=== PATIENT | male | born 1975 | race Caucasian/White ===

== ENCOUNTER 2019-04-26 09:00 | Outpatient (CLI) | payer OTHER ==
[~2019-04-26] VITALS: Ht 172.7 cm; Wt 92.1 kg
[~2019-04-26 09:00] MED LIST: ZOLP5TAB7 PO
== END 2019-04-26 09:12 | disposition home or self-care (01) ==
LOC: PREOP 09:00
PROVIDERS: ATTEND Surgery
DX: Z01.818 Encounter for other preprocedural examination (principal)

== ENCOUNTER 2019-05-02 07:29 | Day surgery (SDC) | payer OTHER ==
[~2019-05-02] VITALS: Ht 172.7 cm; Wt 91.9 kg
[2019-05-02] VITALS (7 sets, daily range): BP systolic 107–144; BP diastolic 73–95
[2019-05-02] MEDS ORDERED: ceFAZolin 2 GM/50 ML NS 50 ML IV ONE (07:45)
[2019-05-02] MEDS ORDERED: fentaNYL INJECTION 100 MCG/2 ML AMP ONE (07:59)
[2019-05-02] MEDS ORDERED: proPOfol 200 MG/20 ML (DIPRIVAN) VIAL IV ONE (07:59)
[2019-05-02] MEDS ORDERED: LIDOCAINE PF 2% 5 ML (XYLOCAINE) VIAL ONE (07:59)
[2019-05-02] MEDS ORDERED: MIDAZOLAM 2 MG/2 ML (VERSED) VIAL ONE ×2 (07:59→10:29)
[2019-05-02] MEDS ORDERED: SEVOFLURANE (ULTANE) 15 ML INHAL SOLN ONE ×2 (08:03→10:57)
[2019-05-02] MEDS: LACTATED RINGERS 1,000 ML IV PRN ×2 (08:10→11:27)
[2019-05-02] MEDS ORDERED: BUP/EPI 0.5% 1:200,000 (SENSORCAINE) 30 ML VIAL ONE (08:14)
--- NOTE | 2019-05-02 09:16 | Progress Note-Pre Operative ---
Pre-Operative Progress Note H&P Reviewed The H&P was reviewed, patient examined and no changes noted. Date Seen by Provider: May 02, 2019 Time Seen by Provider: 09:15 Date H&P Reviewed: May 02, 2019 Time H&P Reviewed: 09:10 Pre-Operative Diagnosis: Symptomatic lipomas of the right and left flank, mid- epigastric area ADITI SOLIS APRN May 02, 2019 09:16
[2019-05-02] MEDS ORDERED: HYDR-3812 PO (09:20)
--- NOTE | 2019-05-02 09:20 | Discharge Inst-Surgical ---
D/C Lap Instructions-KIDO New, Converted, or Re-Newed RX: RX on Chart Follow Up Appt in 2 weeks Activity as tolerated No driving for 24 hours No driving while on pain medications Incentive Spirometry use every 2 hours while awake Regular Diet Symptoms to Report: Fever over 101 degree F, Nausea/Vomiting Infection Signs and Symptoms to report: Increased redness, Foul odor of wound, Increased drainage Bathing instructions: May shower Operative Area Clean/Dry; Keep incision clean/dry If any problems/questions: Contact your physician or go to Emergency Room ADITI SOLIS APRN May 02, 2019 09:20
[2019-05-02] MEDS ORDERED: fentaNYL INJECTION 100 MCG/2 ML AMP IVP PRN (09:30)
[2019-05-02] MEDS ORDERED: ONDANSETRON 4 MG/2 ML (SDV) Z0FRAN IVP PRN ×2 (09:30→11:00)
[2019-05-02] MEDS ORDERED: PROPOFOL INJECTION 50 ML IV ONE ×2 (10:21→11:00)
--- OUTSIDE RECORDS SUMMARY | 2019-05-02 10:35 | XMS REPORT | Continuity of Care Document ---
Author Organization Unknown Address Unknown Allergies There is no data. Medications There is no data. Problems There is no data. Procedures There is no data. Results There is no data. Encounters ACCT No. Visit Date/Time Discharge Status Pt. Type Provider Facility Loc./Unit Complaint [id number] 03/02/2019 08:30:00 03/02/2019 23:59:59 [facility] Outpatient [facility]
[2019-05-02] MEDS ORDERED: MEPERIDINE (DEMEROL) INJ 50 MG/ML IVP ONE (11:00)
[2019-05-02] MEDS ORDERED: morphine INJ 10 MG/ML 1ML (SYR OR VIAL) IVP ONE (11:00)
--- NOTE | 2019-05-02 11:54 | Progress Note-Post Operative ---
Post-Operative Progess Note Surgeon (s)/News Operations Manager (s) Surgeon JENNIFER GARDNER MD News Operations Manager: junaid lopez [facility] Pre-Operative Diagnosis Symptomatic lipomas of the right and left flank, mid-epigastric area Post-Operative Diagnosis lipoma chest(2cm), lipoma right flank(2.5cm), lipoma left flank(5cm) Procedure & Operative Findings Date of Procedure 05/02/19 Procedure Performed/Findings excision symptomatic subcutaneous lipoma anterior chest, bilateral flank Anesthesia Type MAC with local Estimated Blood Loss Estimated blood loss (mL): minimal Specimens/Packing Specimens Removed lipoma chest, bilateral flank JENNIFER GARDNER MD May 02, 2019 11:54
[2019-05-02] MEDS ORDERED: ACETAMINOPHEN 500 MG TAB (TYLENOL) PO SCH (12:00)
--- NOTE | 2019-05-02 12:12 | Anesthesia-General Post-Op ---
General Patient Condition Mental Status/LOC: Same as Preop Cardiovascular: Satisfactory Nausea/Vomiting: Absent Respiratory: Satisfactory Pain: Controlled Complications: Absent Post Op Complications Complications None Follow Up Care/Instructions Patient Instructions None needed. Anesthesia/Patient Condition Patient Condition Patient is doing well, no complaints, stable vital signs, no apparent adverse anesthesia problems. No complications reported per nursing. DESTINY VILLANUEVA CRNA May 02, 2019 12:12
--- NOTE | 2019-05-02 16:49 | OPERATIVE REPORT ---
DATE OF SERVICE: 05/02/2019 ATTENDING PRIMARY CARE PHYSICIAN: Solitario Paz DO. PREOPERATIVE DIAGNOSIS: Symptomatic lipomas, bilateral flank, inferior mid chest. POSTOPERATIVE DIAGNOSIS: Symptomatic lipomas, bilateral flank, inferior mid chest with a lesion in the chest, 2 cm in size, right flank 2.5 cm in size, left flank 5 x 3 cm in size. PROCEDURE PERFORMED: Excision of symptomatic lipomas, inferior chest, 2 cm in size, right flank 2.5 cm in size, left flank 5 x 3 cm in size. SURGEON: Saroj Gardner MD MESH WORKER: Corey Farmer APRN. ANESTHESIA: Monitored anesthesia care with local. ESTIMATED BLOOD LOSS: Minimal. FINDINGS: All three lesions appear to be benign lipomas. DISPOSITION: The patient tolerated the procedure well. INDICATIONS: The patient is a 44-year-old male, who states that he has had noted lesions of the lower aspect of the chest just above the xiphoid process as well as bilateral flank overlying the inferior ribs for several years. He reports that these have grown larger in size and become painful. Upon examination, he was found to have subcutaneous nodular, well-circumscribed lesions consistent with lipomas; however, were tender to palpation. DESCRIPTION OF PROCEDURE: The patient was brought to the operating room, laid supine on the table. After adequate IV pain and sedative medications and monitored anesthesia care, the chest and right flank were prepped and draped in standard surgical fashion. Lidocaine 1% with epinephrine was then used to anesthetize the overlying skin throughout the lesions. We first proceeded with excision of the chest lesion. A transverse skin incision was made using a 15-blade. Subcutaneous tissue was dissected using electrocautery. The lipoma was identified and dissected out using blunt dissection as well as electrocautery. Good hemostasis was observed and the lesion was measured out to be 2 cm in size. Subcutaneous tissue was then reapproximated using 3-0 Vicryl interrupted sutures and skin was closed using 4-0 Monocryl running subcuticular suture. We then proceeded with an excision of the right flank lesion in a similar manner. A transverse skin incision was made using a 15-blade. Subcutaneous tissue was dissected using electrocautery as well as blunt dissection. A similar benign appearing lipoma identified. This lesion was then fully excised and measured out to be 2.5 cm in size. Good hemostasis was observed. The subcutaneous tissue was reapproximated using 3-0 Vicryl interrupted sutures and the skin was closed using 4-0 Monocryl running subcuticular suture. The patient was then placed in a modified right lateral decubitus position and the left flank was prepped and draped in standard surgical fashion. Lidocaine 1% with epinephrine was then used to anesthetize the overlying skin. A transverse skin incision was made using 15-blade. This lesion was slightly larger. Subcutaneous tissue was then opened using electrocautery. The lipomatous tissue was identified. This was then fully dissected using Metzenbaum scissors as well as electrocautery. The lesion was then fully excised and measured out to be 5 x 3 cm in size. Good hemostasis was observed and the subcutaneous tissue was then reapproximated using 3-0 Vicryl interrupted sutures and skin was closed using 4-0 Monocryl running subcuticular suture. Wound was then cleaned and covered with Dermabond. The patient tolerated the procedure well. All skin incisions were cleaned and covered with Dermabond. The patient tolerated the procedure well. We will start IV and oral pain medication as well as a clear liquid diet. Once he is tolerating clears, has good pain control with oral pain medications and ambulating well, we will discharge him home. His only contraindication is to keep all areas clean and dry and do not soak in water as well as no heavy lifting or exertion for two weeks. Job ID: [id number] DocumentID: [id number] Dictated Date: 05/02/2019 11:51:12 Brake Holder Date: 05/02/2019 16:48:31 Dictated By: SAROJ GARDNER MD
== END 2019-05-02 13:05 | disposition home or self-care (01) ==
LOC: SDC 07:29
PROVIDERS: ATTEND Surgery
DX: D17.1 Benign lipomatous neoplasm of skin and subcutaneous tissue of trunk (principal); I10 Essential (primary) hypertension; G47.33 Obstructive sleep apnea (adult) (pediatric); G57.91 Unspecified mononeuropathy of right lower limb; Z79.899 Other long term (current) drug therapy
CPT/HCPCS: 87081

== ENCOUNTER 2019-05-13 08:18 | Emergency (ER) | payer OTHER ==
[~2019-05-13] VITALS: Ht 172.7 cm; Wt 90.7 kg
[~2019-05-13 08:18] MED LIST changes: +HYDR-3812 PO
--- OUTSIDE RECORDS SUMMARY | 2019-05-13 08:25 | XMS REPORT | Continuity of Care Document ---
Author Organization Unknown Address Unknown Allergies There is no data. Medications There is no data. Problems There is no data. Procedures There is no data. Results There is no data. Encounters ACCT No. Visit Date/Time Discharge Status Pt. Type Provider Facility Loc./Unit Complaint [id number] 03/02/2019 08:30:00 03/02/2019 23:59:59 [facility] Outpatient [facility] IN [facility]
--- NOTE | 2019-05-13 08:41 | ED Integumentary General ---
General Chief Complaint: Skin/Wound Problems Stated Complaint: PT HAVING PAIN WHERE HE HAD SURGERY ON 05/02 Source: patient Exam Limitations: no limitations History of Present Illness Date Seen by Provider: May 13, 2019 Time Seen by Provider: 08:35 Initial Comments Patient had lipoma removed from right side on May 02. Wound was closed wound adhesive. Wound started to dehisce yesterday and now is completely dehisced. His doctor started him on antibiotics a few days ago. Allergies and Home Medications Allergies Coded Allergies: No Known Drug Allergies (Unverified , 04/26/19) Home Medications Hydrocodone/Acetaminophen 1 Each Tablet, 1-2 TAB PO Q4H Prescribed by: ADITI SOLIS on 05/02/19 0920 Zolpidem Tartrate 5 Mg Tablet, 5 MG PO DAILY, (Reported) Patient Home Medication List Home Medication List Reviewed: Yes Review of Systems Review of Systems Constitutional: no symptoms reported Respiratory: no symptoms reported Cardiovascular: no symptoms reported Skin: see HPI Past Znzjvmy-Rqapfw-Aijoay Hx Patient Social History Alcohol Use: Denies Use 2nd Hand Smoke Exposure: No Recent Hopitalizations: No Immunizations Up To Date PED Vaccines UTD: No Seasonal Allergies Seasonal Allergies: Yes Past Medical History Surgeries: Yes (UMBILICAL HERNIA) Respiratory: No Cardiac: No Neurological: No Reproductive Disorders: No Sexually Transmitted Disease: No HIV/AIDS: No Genitourinary: No Gastrointestinal: No Musculoskeletal: Yes (SHOULDERS) Arthritis Endocrine: No HEENT: Yes (GLASSES) Loss of Vision: Denies Hearing Impairment: Denies Cancer: No Psychosocial: Yes Sleep Difficulties Integumentary: No Blood Disorders: No Adverse Reaction/Blood Tranf: No (N/A) Physical Exam Vital Signs Vital Signs - First Documented 05/13/19 08:46 Temp 97.5 Pulse 76 Resp 18 B/P (MAP) 146/81 (102) Pulse Ox 100 Capillary Refill : General Appearance: WD/WN, no apparent distress Neck: supple Cardiovascular: regular rate, rhythm Respiratory: lungs clear Neurologic/Psychiatric: alert, normal mood/affect Skin: normal color, warm/dry, other (there is a 5 cm diameter wound right side down to fascia. Wound margins are pink and healthy-appearing there is some yellow discharge.) Progress/Results/Core Measures Results/Orders Vital Signs/I&O 05/13/19 08:46 Temp 97.5 Pulse 76 Resp 18 B/P (MAP) 146/81 (102) Pulse Ox 100 Departure Impression Primary Impression: Wound dehiscence Disposition: 01 HOME, SELF-CARE Condition: Stable Departure-Patient Inst. Decision time for Depature: 08:41 Referrals: LUIZA JAIN DO (PCP/Family) Primary Care Physician Patient Instructions: Wound Dehiscence Add. Discharge Instructions: All discharge instructions reviewed with patient and/or family. Voiced understanding. wet to dry dressing changes every 2-3 days. Wound Care Fabrice Weir MD [facility] . . . . . . . . . . . . . . . . . . . . . [phone] Hours . . . . . . . . . . . . . . . . . . . . Mon.-Fri., 8 a.m.-4:30 p.m. DONG BOLTON MD May 13, 2019 08:41
[2019-05-13 08:46] VITALS: BP 146/81
== END 2019-05-13 08:48 | disposition home or self-care (01) ==
LOC: EDUNIT# 08:18 → ER FS 08:21
DX: T81.31XA Disruption of external operation (surgical) wound, not elsewhere classified, initial encounter (principal); Z86.018 Personal history of other benign neoplasm; Z98.890 Other specified postprocedural states

== ENCOUNTER 2019-10-03 08:10 | Emergency (ER) | payer OTHER ==
[~2019-10-03] VITALS: Ht 172 cm; Wt 88.7 kg
[2019-10-03] MEDS ORDERED: ASPIRIN 81 MG CHEW (CHILDREN'S ASA) PO STA (08:33)
--- NOTE | 2019-10-03 08:41 | Diagnostic Imaging Report ---
INDICATION: Intermittent chest tightness over the past week.. TECHNIQUE: Single view chest 8:12 AM. CORRELATION STUDY: None FINDINGS: The heart size, mediastinal configuration and pulmonary vascularity are within normal limits. Calcified hilar granulomas. The lungs are clear with no consolidating infiltrate. There is no significant effusion or pneumothorax. IMPRESSION: 1. Negative for acute abnormality of the chest. Dictated by: Dictated on workstation # [id number]
--- NOTE | 2019-10-03 09:17 | ED Chest Pain ---
General Chief Complaint: Chest Pain Stated Complaint: CHEST PAIN Nursing Triage Note: Has had intermittent chest tightness over the past week. Is currently rated at 1/10. Has had some associated nausea with the tightness and has been coughing over the past couple of days. States he feels like he has been getting run down at work and feeling weak. Nursing Sepsis Screen: No Definite Risk Source: patient Exam Limitations: no limitations History of Present Illness Date Seen by Provider: Oct 03, 2019 Time Seen by Provider: 08:20 Initial Comments Here with intermittent chest tightness over the last week. States that it's between the chest muscles and pointing to the pectoralis muscles. States like he has been getting run down recently and seems to be intermittent in that every other day he feels fine in every other day he feels weak. Reports increasing shortness of breath during that timeframe. Mild cough but not persistent. Denies fever or chills. Denies diarrhea. His father of heart attack late 50s or early 60s age Timing/Duration: changing over time, intermittent Severity/Quality: mild, tightness Location: central Radiation: no radiation Activities at Onset: none Prior CP/Workup: no prior chest pain ASA po DEHYDRATOR OPERATOR: No NTG SL DEHYDRATOR OPERATOR: No Associated Symptoms: No back pain; fatigue; No fever/chills, No nausea/vomiting; shortness of breath, weakness Allergies and Home Medications Allergies Coded Allergies: No Known Drug Allergies (Unverified , 04/26/19) Home Medications Hydrocodone/Acetaminophen 1 Each Tablet, 1-2 TAB PO Q4H Prescribed by: ADITI SOLIS on 05/02/19 0920 Zolpidem Tartrate 5 Mg Tablet, 5 MG PO DAILY, (Reported) Patient Home Medication List Home Medication List Reviewed: Yes Review of Systems Review of Systems Constitutional: see HPI EENTM: No Symptoms Reported Respiratory: See HPI Cardiovascular: See HPI; Denies Edema, Denies Palpitations Gastrointestinal: Denies Abdominal Pain, Denies Nausea, Denies Vomiting Genitourinary: No Symptoms Reported Musculoskeletal: no symptoms reported Skin: no symptoms reported Psychiatric/Neurological: See HPI Endocrine: No Symptoms Reported All Other Systems Reviewed Negative Unless Noted: Yes Past Qinonfd-Tavmjp-Ygwlho Hx Past Med/Social Hx: Reviewed Nursing Past Med/Soc Hx Patient Social History Alcohol Use: Denies Use Recreational Drug Use: No Smoking Status: Former Smoker Former Smoker, Quit: Oct 03, 1989 2nd Hand Smoke Exposure: No Recent Foreign Travel: No Contact w/Someone Who Travel: No Recent Infectious Disease Expo: No Recent Hopitalizations: No Physical Abuse: No Sexual Abuse: No Mistreated: No Fear: No Immunizations Up To Date PED Vaccines UTD: No Seasonal Allergies Seasonal Allergies: Yes Past Medical History Surgeries: Yes (UMBILICAL HERNIA; lipoma removal) Abdominal Respiratory: No Cardiac: No Neurological: No Reproductive Disorders: No Sexually Transmitted Disease: No HIV/AIDS: No Genitourinary: No Gastrointestinal: No Musculoskeletal: Yes (SHOULDERS) Arthritis Endocrine: No HEENT: Yes (GLASSES) Loss of Vision: Denies Hearing Impairment: Denies Cancer: No Psychosocial: Yes Sleep Difficulties Integumentary: No Blood Disorders: No Adverse Reaction/Blood Tranf: No (N/A) Family Medical History Reviewed Nursing Family Hx Heart Disease, CAD Over 55 Years Old Physical Exam Vital Signs Vital Signs - First Documented 10/03/19 08:25 Temp 36.9 Pulse 78 Resp 14 B/P (MAP) 133/103 (113) Pulse Ox 100 Capillary Refill : Less Than 3 Seconds Height, Weight, BMI Height: 5'8.00" Weight: 200lbs. 8.0oz. 90.380054bm; 29.00 BMI Method:Stated General Appearance: No Apparent Distress, WD/WN HEENT: PERRL/EOMI, Pharynx Normal Neck: Non Tender, Supple Respiratory: Lungs Clear, Normal Breath Sounds Cardiovascular: Regular Rate, Rhythm, No Murmur Gastrointestinal: Non Tender, Soft Extremity: Normal Inspection, Normal Range of Motion, Non Tender Neurologic/Psychiatric: Alert, Oriented x3 Skin: Normal Color, Warm/Dry Progress/Results/Core Measures Results/Orders Lab Results Laboratory Tests Test 10/03/19 08:23 Range/Units White Blood Count 9.3 4.3-11.0 10^3/uL Red Blood Count 5.16 4.35-5.85 10^6/uL Hemoglobin 15.6 13.3-17.7 G/DL Hematocrit 48 40-54 % Mean Corpuscular Volume 93 80-99 FL Mean Corpuscular Hemoglobin 30 25-34 PG Mean Corpuscular Hemoglobin Concent 33 32-36 G/DL Red Cell Distribution Width 12.4 10.0-14.5 % Platelet Count 230 130-400 10^3/uL Mean Platelet Volume 10.5 H 7.4-10.4 FL Neutrophils (%) (Auto) 71 42-75 % Lymphocytes (%) (Auto) 21 12-44 % Monocytes (%) (Auto) 7 0-12 % Eosinophils (%) (Auto) 1 0-10 % Basophils (%) (Auto) 0 0-10 % Neutrophils # (Auto) 6.6 1.8-7.8 X 10^3 Lymphocytes # (Auto) 2.0 1.0-4.0 X 10^3 Monocytes # (Auto) 0.6 0.0-1.0 X 10^3 Eosinophils # (Auto) 0.1 0.0-0.3 10^3/uL Basophils # (Auto) 0.0 0.0-0.1 10^3/uL Prothrombin Time 13.0 12.2-14.7 SEC INR Comment 0.9 0.8-1.4 Activated Partial Thromboplast Time 26 24-35 SEC Sodium Level 141 135-145 MMOL/L Potassium Level 3.5 L 3.6-5.0 MMOL/L Chloride Level 101 98-107 MMOL/L Carbon Dioxide Level 28 21-32 MMOL/L Anion Gap 12 5-14 MMOL/L Blood Urea Nitrogen 16 7-18 MG/DL Creatinine 1.08 0.60-1.30 MG/DL Estimat Glomerular Filtration Rate > 60 BUN/Creatinine Ratio 15 Glucose Level 94 70-105 MG/DL Calcium Level 9.6 8.5-10.1 MG/DL Corrected Calcium 9.3 8.5-10.1 MG/DL Magnesium Level 2.3 1.6-2.4 MG/DL Total Bilirubin 0.5 0.1-1.0 MG/DL Aspartate Amino Transf (AST/SGOT) 20 5-34 U/L Alanine Aminotransferase (ALT/SGPT) 40 0-55 U/L Alkaline Phosphatase 80 40-136 U/L Myoglobin 57.0 10.0-92.0 NG/ML Troponin I < 0.30 <0.30 NG/ML Total Protein 7.8 6.4-8.2 GM/DL Albumin 4.4 3.2-4.5 GM/DL My Orders Orders - SHERRELL GIRON MD Cbc With Automated Diff (10/03/19 08:24) Magnesium (10/03/19 08:24) Chest 1 View Ap/Pa Only (10/03/19 08:24) Ekg Tracing (10/03/19 08:24) Comprehensive Metabolic Panel (10/03/19 08:24) Myoglobin Serum (10/03/19 08:24) Protime With Inr (10/03/19 08:24) Partial Thromboplastin Time (10/03/19 08:24) Monitor-Rhythm Ecg Trace Only (10/03/19 08:24) Lipid Panel (10/04/19 06:00) Ed Iv/Invasive Line Start (10/03/19 08:24) Troponin I Fs (10/03/19 08:24) Aspirin Chewable Tablet (Baby Aspirin Ch (10/03/19 08:33) Vital Signs/I&O 10/03/19 08:25 Temp 36.9 Pulse 78 Resp 14 B/P (MAP) 133/103 (113) Pulse Ox 100 Blood Pressure Mean: 113 POS Progress Progress Note : Progress Note Seen and evaluated. IV, labs and EKG and chest x-ray. ASA 324 mg by mouth given. Monitor patient. 1020: All labs are negative. Pain is resolved completely. He d oes have some history of reactive airway disease. We will give prescription for inhaler. Discharged home with return precautions. Patient verbalize understanding instructions and agreement with plan. Initial ECG Impression Date: Oct 03, 2019 Initial ECG Impression Time: 08:15 Initial ECG Rate: 79 Initial ECG Rhythm: Normal Sinus Initial ECG Impression: Normal Initial ECG Comparisson: No Previous ECG Available Comment Sinus rhythm with normal axis. No evidence of ST elevation MA. No previous available for comparison. Interpreted by me. Diagnostic Imaging Diagonstic Imaging: Xray Plain Films/CT/US/NM/MRI: chest Comments [facility]. POS [place], [place] POS NAME: XOCHITL [facility] REC#: [id number] PT STATUS: REG ER : 1975 PHYSICIAN: SHERRELL GIRON MD ADMIT DATE: 10/03/19/ER FS Draft POSDate of Exam:10/03/19 CHEST 1 VIEW AP/PA ONLY INDICATION: Intermittent chest tightness over the past week.. TECHNIQUE: Single view chest 8:12 AM. CORRELATION STUDY: None FINDINGS: The heart size, mediastinal configuration and pulmonary vascularity are within normal limits. Calcified hilar granulomas. The lungs are clear with no consolidating infiltrate. There is no significant effusion or pneumothorax. IMPRESSION: 1. Negative for acute abnormality of the chest. Dictated on workstation # [id number] Dict: 10/03/19 0840 Trans: 10/03/19840 DO [id number] Interpreted by: MARY LIGHT DO Electronically signed by: Departure Impression Primary Impression: Upper respiratory infection, viral Additional Impression: Chest pain Qualified Codes: R07.9 - Chest pain, unspecified Disposition: HOME, SELF-CARE Condition: Improved Departure-Patient Inst. Decision time for Depature: 10:25 Referrals: LUIZA JAIN DO (PCP/Family) Primary Care Physician Patient Instructions: Chest Pain (DC), Viral Upper Respiratory Infection, Adult (DC) Add. Discharge Instructions: All discharge instructions reviewed with patient and/or family. Voiced understanding. Take medications as directed. Follow-up with your doctor within the next several days for recheck and further evaluation. Return for worse pain, fever, vomiting, weakness, breathing problems or other concerns as needed. Scripts Albuterol Sulfate (VENTOLIN HFA) 1 Puff Puff 2 PUFF INH Q4H PRN for WHEEZING, #1 INHALER 0 Refills 1 PUFF = 90 MCG Prov: SHERRELL GIRON MD 10/03/19 SHERRELL GIRON MD Oct 03, 2019 09:17 POS
[2019-10-03 09:33] LABS: HEMATOCRIT 48 % (40-54); HEMOGLOBIN 15.6 G/DL (13.3-17.7); MEAN CORPUSCULAR HEMOGLOBIN 30 PG (25-34); MEAN CORPUSCULAR HGB CONC 33 G/DL (32-36); MEAN CORPUSCULAR VOLUME 93 FL (80-99); MEAN PLATELET VOLUME 10.5 FL (7.4-10.4); PLATELET COUNT 230 10^3/uL (130-400); RED CELL DISTRIBUTION WIDTH 12.4 % (10.0-14.5); WHITE BLOOD COUNT 9.3 10^3/uL (4.3-11.0)
[2019-10-03 09:34] LABS: BASOPHILS % (AUTO) 0 % (0-10); EOSINOPHILS # (AUTO) 0.1 10^3/uL (0.0-0.3); EOSINOPHILS % (AUTO) 1 % (0-10); LYMPHOCYTES % (AUTO) 21 % (12-44); MONOCYTES # (AUTO) 0.6 X 10^3 (0.0-1.0); MONOCYTES % (AUTO) 7 % (0-12); NEUTROPHILS # (AUTO) 6.6 X 10^3 (1.8-7.8); NEUTROPHILS % (AUTO) 71 % (42-75); SODIUM 141 MMOL/L (135-145)
[2019-10-03 09:35] LABS: ALANINE AMINOTRANSFERASE 40 U/L (0-55); ALBUMIN 4.4 GM/DL (3.2-4.5); ALKALINE PHOSPHATASE 80 U/L (40-136); BILIRUBIN,TOTAL 0.5 MG/DL (0.1-1.0); BUN/CREATININE RATIO 15; CALCIUM 9.6 MG/DL (8.5-10.1); CARBON DIOXIDE 28 MMOL/L (21-32); CHLORIDE 101 MMOL/L (98-107); CREATININE SERUM 1.08 MG/DL (0.60-1.30); GFR ESTIMATED > 60; GLUCOSE 94 MG/DL (70-105); MAGNESIUM 2.3 MG/DL (1.6-2.4); POTASSIUM 3.5 MMOL/L (3.6-5.0); TOTAL PROTEIN 7.8 GM/DL (6.4-8.2)
[2019-10-03 09:36] LABS: INR 0.9 (0.8-1.4)
[2019-10-03] MEDS ORDERED: RT-ALBUINH INH (10:32)
[2019-10-03 10:39] VITALS: BP 142/85
--- OUTSIDE RECORDS SUMMARY | 2019-10-28 04:14 | XMS REPORT | Continuity of Care Document ---
Author Organization Unknown Address Unknown Phone Unavailable Allergies Active Description Code Type Severity Reaction Onset Reported/Identified Relationship to Patient Clinical Status Yes No Known Drug Allergies [id number] Drug Allergy Unknown N/A 04/26/2019 Medications There is no data. Problems Date Dx Coded Attending Type Code Diagnosis Diagnosed By 04/25/2019 JENNIFER GARDNER MD, Ot Z01.81 8 ENCOUNTER FOR OTHER PREPROCEDURAL EXAMIN 04/26/2019 JENNIFER GARDNER MD, Ot Z01.81 8 ENCOUNTER FOR OTHER PREPROCEDURAL EXAMIN 04/26/2019 JENNIFER GARDNER MD, Ot Z01.81 8 ENCOUNTER FOR OTHER PREPROCEDURAL EXAMIN 05/02/2019 JENNIFER GARDNER MD, Ot D17.1 BENIGN LIPOMATOUS NEOPLASM OF SKIN, SUBC 05/02/2019 JENNIFER GARDNER MD, Ot G47.33 OBSTRUCTIVE SLEEP APNEA (ADULT) (PEDIATR 05/02/2019 JENNIFER GARDNER MD, Ot G57.91 UNSPECIFIED MONONEUROPATHY OF RIGHT LOWE 05/02/2019 JENNIFER GARDNER MD Ot I10 ESSENTIAL (PRIMARY) HYPERTENSION 05/02/2019 JENNIFER GARDNER MD Ot 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 05/09/2019 JENNIFER GARDNER MD Ot D17.1 BENIGN LIPOMATOUS NEOPLASM OF SKIN, SUBC 05/09/2019 JENNIFER GARDNER MD, Ot G47.33 OBSTRUCTIVE SLEEP APNEA (ADULT) (PEDIATR 05/09/2019 JENNIFER GARDNER MD Ot G57.91 UNSPECIFIED MONONEUROPATHY OF RIGHT LOWE 05/09/2019 JENNIFER GARDNER MD Ot I10 ESSENTIAL (PRIMARY) HYPERTENSION 05/09/2019 JENNIFER GARDNER MD Ot Z79.89 9 OTHER JAIL (CURRENT) DRUG THERAPY 05/12/2019 JENNIFER GARDNER MD Ot D17.1 BENIGN LIPOMATOUS NEOPLASM OF SKIN, SUBC 05/12/2019 JENNIFER GARDNER MD, Ot G47.33 OBSTRUCTIVE SLEEP APNEA (ADULT) (PEDIATR 05/12/2019 JENNIFER GARDNER MD Ot G57.91 UNSPECIFIED MONONEUROPATHY OF RIGHT LOWE 05/12/2019 JENNIFER GARDNER MD Ot I10 ESSENTIAL (PRIMARY) HYPERTENSION 05/12/2019 JENNIFER GARDNER MD Ot Z79.89 9 OTHER JAIL (CURRENT) DRUG THERAPY 05/13/2019 DONG BOLTON MD Ot T81.31XA DISRUPTION OF EXTERNAL OPERATION (SURGIC 05/13/2019 DONG BOLTON MD A Ot Z86.018 PERSONAL HISTORY OF OTHER BENIGN NEOPLAS 05/13/2019 DONG BOLTON MD A Ot Z98.890 OTHER SPECIFIED POSTPROCEDURAL STATES 05/18/2019 DONG BOLTON MD Ot T81.31XA DISRUPTION OF EXTERNAL OPERATION (SURGIC 05/18/2019 DONG BOLTON MD A Ot Z86.018 PERSONAL HISTORY OF OTHER BENIGN NEOPLAS 05/18/2019 DONG BOLTON MD A Ot Z98.890 OTHER SPECIFIED POSTPROCEDURAL STATES 10/03/2019 SHERRELL GIRON MD Ot J06.9 ACUTE UPPER RESPIRATORY INFECTION, UNSPE 10/03/2019 SHERRELL GIRON MD Ot R07.89 OTHER CHEST PAIN 10/03/2019 SHERRELL GIRON MD Ot Z87.891 PERSONAL HISTORY OF NICOTINE DEPENDENCE 10/07/2019 SHERRELL GIRON MD Ot J06.9 ACUTE UPPER RESPIRATORY INFECTION, UNSPE 10/07/2019 SHERRELL GIRON MD Ot R07.89 OTHER CHEST PAIN 10/07/2019 SHERRELL GIRON MD Ot Z87.891 PERSONAL HISTORY OF NICOTINE DEPENDENCE Procedures There is no data. Results Test Result Range Methicillin resistant Staphylococcus aur eus (MRSA) screening culture - 05/02/19 07:51 Methicillin resistant Staphylococcus aureus (MRSA) scr eening culture NEG NR Comprehensive metabolic panel - 10/03/19 08:23 Serum or plasma sodium measurement (moles/volume) 141 mmol/L 135-145 Serum or plasma potassium measurement (moles/volume) 3.5 mmol/L 3.6-5.0 Serum or plasma chloride measurement (moles/volume) 101 mmol/L 98-107 Carbon dioxide 28 mmol/L 21-32 Serum or plasma anion gap determination (moles/volume) 12 mmol/L 5-14 Serum or plasma urea nitrogen measurement (mass/volume ) 16 mg/dL 7-18 Serum or plasma creatinine measurement (mass/volume) 1.08 mg/dL 0.60-1.30 Serum or plasma urea nitrogen/creatinine mass ratio 15 NRG Serum or plasma creatinine measurement w ith calculation of estimated glomerular filtration rate > NRG Serum or plasma glucose measurement (mass/volume) 94 mg/dL 70-105 Serum or plasma calcium measurement (mass/volume) 9.6 mg/dL 8.5-10.1 Serum or plasma total bilirubin measurement (mass/volu me) 0.5 mg/dL 0.1-1.0 Serum or plasma alkaline phosphatase sergio surement (enzymatic activity/volume) 80 U/L 40-136 Serum or plasma aspartate aminotransfera se measurement (enzymatic activity/volume) 20 U/L 5-34 Serum or plasma alanine aminotransferase measurement (enzymatic activity/volume) 40 U/L 0-55 Serum or plasma protein measurement (mass/volume) 7.8 g/dL 6.4-8.2 Serum or plasma albumin measurement (mass/volume) 4.4 g/dL 3.2-4.5 CALCIUM CORRECTED 9.3 mg/dL 8.5-10.1 Magnesium - 10/03/19 08:23 Magnesium 2.3 mg/dL 1.6-2.4 Myoglobin, serum - 10/03/19 08:23 Myoglobin, serum 57.0 ng/mL 10.0-92.0 Complete blood count (CBC) with automate d white blood cell (WBC) differential - 10/03/19 08:23 Blood leukocytes automated count (number/volume) 9.3 10*3/uL 4.3-11.0 Blood erythrocytes automated count (number/volume) 5.16 10*6/uL 4.35-5.85 Venous blood hemoglobin measurement (mass/volume) 15.6 g/dL 13.3-17.7 Blood hematocrit (volume fraction) 48 % 40-54 Automated erythrocyte mean corpuscular volume 93 [ foz_us] 80-99 Automated erythrocyte mean corpuscular h emoglobin (mass per erythrocyte) 30 pg 25-34 Automated erythrocyte mean corpuscular h emoglobin concentration measurement (mass/volume) 33 g/dL 32-36 Automated erythrocyte distribution width ratio 12. 4 % 10.0- 14.5 Automated blood platelet count (count/volume) 230 10*3/uL 130-400 Automated blood platelet mean volume measurement 10.5 [foz_us] 7.4-10.4 Automated blood neutrophils/100 leukocytes 71 % 42-75 Automated blood lymphocytes/100 leukocytes 21 % 12-44 Blood monocytes/100 leukocytes 7 % 0-12 Automated blood eosinophils/100 leukocytes 1 % 0-10 Automated blood basophils/100 leukocytes 0 % 0-10 Blood neutrophils automated count (number/volume) 6.6 10*3 1.8-7.8 Blood lymphocytes automated count (number/volume) 2.0 10*3 1.0-4.0 Blood monocytes automated count (number/volume) 0. 6 10*3 0.0-1.0 Automated eosinophil count 0.1 10*3/uL 0 .0-0.3 Automated blood basophil count (count/volume) 0.0 10*3/uL 0.0-0.1 PT panel in platelet poor plasma by coag ulation assay - 10/03/19 08:23 Prothrombin time (PT) in platelet poor plasma by coagu lation assay 13.0 s 12.2-14.7 INR in platelet poor plasma or blood by coagulation as say 0.9 0.8-1.4 Activated partial thromboplastin time (a PTT) in platelet poor plasma bycoagulation assay - 10/03/19 08:23 Activated partial thromboplastin time (a PTT) in platelet poor plasma bycoagulation assay 26 s 24-35 TROPONIN I FS - 10/03/19 08:23 TROPONIN I FS < 0.30 <0.30 Encounters ACCT No. Visit Date/Time Discharge Status Pt. Type Provider Facility Loc./Unit Complaint [id number] 10/03/2019 07:30:00 10/03/2019 23:59:5 9 CLS Outpatient [facility] [id number] 10/03/2019 08:11:00 10:40:00 DIS Emergency MACK KIM, SHERRELL Hsu Via [facility] ER FS CHEST PAIN [id number] 05/17/2019 09:34:00 23:59:59 CLS Preadmit ERMA KIM, DANK Rodriguez [facility] WOUNDCARE [id number] 05/13/2019 08:21:00 019 08:48:00 DIS Emergency HOANG KIM, DONG Wick [facility] ER FS PT HAVING PAIN WHERE HE HAD SURGERY ON 05/02 [id number] 05/02/2019 07:29:00 019 13:05:00 DIS Outpatient JENNIFER GARDNER MD [facility] SDC [place] [id number] 04/26/2019 09:00:00 019 09:12:00 DIS Outpatient JENNIFER GARDNER MD [facility] PREOP [place]
== END 2019-10-03 10:40 | disposition home or self-care (01) ==
LOC: EDUNIT# 08:10 → ER FS 08:11
DX: J06.9 Acute upper respiratory infection, unspecified (principal); R07.89 Other chest pain; Z87.891 Personal history of nicotine dependence
CPT/HCPCS: 36415; 71045; 80053; 83735; 83874; 84484; 85025; 85610; 85730; 93005; 93041

== ENCOUNTER 2020-05-04 21:22 | Emergency (ER) | payer BC, OTHER ==
[~2020-05-04] VITALS: Ht 172.7 cm; Wt 90.9 kg
[~2020-05-04 21:22] MED LIST changes: +ACHD5005 PO; -HYDR-3812 PO; +RT-ALBUINH INH
--- OUTSIDE RECORDS SUMMARY | 2020-05-04 21:31 | XMS REPORT | Continuity of Care Document ---
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 05/09/2019 JENNIFER GARDNER MD Ot D17.1 BENIGN LIPOMATOUS NEOPLASM OF SKIN, SUBC 05/09/2019 JENNIFER GARDNER MD, Ot G47.33 OBSTRUCTIVE SLEEP APNEA (ADULT) (PEDIATR 05/09/2019 JENNIFER GARDNER MD Ot G57.91 UNSPECIFIED MONONEUROPATHY OF RIGHT LOWE 05/09/2019 JENNIFER GARDNER MD Ot I10 ESSENTIAL (PRIMARY) HYPERTENSION 05/09/2019 JENNIFER GARDNER MD Ot Z79.89 9 OTHER SENIOR LIVING (CURRENT) DRUG THERAPY 05/12/2019 JENNIFER GARDNER MD Ot D17.1 BENIGN LIPOMATOUS NEOPLASM OF SKIN, SUBC 05/12/2019 JENNIFER GARDNER MD, Ot G47.33 OBSTRUCTIVE SLEEP APNEA (ADULT) (PEDIATR 05/12/2019 JENNIFER GARDNER MD Ot G57.91 UNSPECIFIED MONONEUROPATHY OF RIGHT LOWE 05/12/2019 JENNIFER GARDNER MD Ot I10 ESSENTIAL (PRIMARY) HYPERTENSION 05/12/2019 JENNIFER GARDNER MD Ot Z79.89 9 OTHER SENIOR LIVING (CURRENT) DRUG THERAPY 05/13/2019 DONG BOLTON MD Ot T81.31XA DISRUPTION OF EXTERNAL OPERATION (SURGIC 05/13/2019 DONG BOLTON MD A Ot Z86.018 PERSONAL HISTORY OF OTHER BENIGN NEOPLAS 05/13/2019 ODNG BOLTON MD A Ot Z98.890 OTHER SPECIFIED POSTPROCEDURAL STATES 05/18/2019 DONG BOLTON MD Ot T81.31XA DISRUPTION OF EXTERNAL OPERATION (SURGIC 05/18/2019 DONG BOLTON MD A Ot Z86.018 PERSONAL HISTORY OF OTHER BENIGN NEOPLAS 05/18/2019 DONG BOTLON MD A Ot Z98.890 OTHER SPECIFIED POSTPROCEDURAL [...] 08:23 TROPONIN I FS < 0.30 <0.30 COVID-19 ([facility]) - 02/01/20 15:52 PATIENT SYMPTOMATIC? NOT GIVEN NRG SOURCE: NOT GIVEN NRG OVERALL RESULT: NOT DETECTED NOT DETE CTED SARS-CoV-2 RNA: NEGATIVE NEGATIVE GUERRA-SARS RNA: NEGATIVE NEGATIVE Encounters ACCT No. Visit Date/Time Discharge Status Pt. Type Provider Facility Loc./Unit Complaint [id number] 02/01/2020 15:25:00 02/01/2020 23:59:5 9 [facility] [id number] 02/01/2020 15:25:00 Document Registration [id number] 10/03/2019 08:11:00 10:40:00 DIS Emergency MACK KIM, SHERRELL Hsu [facility] ER FS CHEST PAIN [id number] 05/17/2019 09:34:00 23:59:59 CLS Preadmit ERMA KIM, DANK Rodriguez [facility] WOUNDCARE [id number] 05/13/2019 08:21:00 08:48:00 DIS Emergency HOANG KIM, DONG Wick [facility] ER FS PT HAVING PAIN WHERE HE HAD SURGERY ON 05/02 [id number] 05/02/2019 07:29:00 13:05:00 DIS Outpatient JENNIFER GARDNER MD [facility] SDC [place] [id number] 04/26/2019 09:00:00 09:12:00 DIS Outpatient JENNIFER GARDNER MD [facility] PREOP [place]
[2020-05-04] MEDS ORDERED: IBUP-1780 PO (21:39)
--- NOTE | 2020-05-04 21:39 | ED General ---
General Chief Complaint: Lower Extremity Stated Complaint: ANKLE INJURY Source of Information: Patient History of Present Illness Date Seen by Provider: May 04, 2020 Time Seen by Provider: 21:30 Initial Comments Presents w sudden onset of sharp pain in back of R calf when suddenly starting to run. Snowflake like something shot him in his calf muscle. Now having pain shooting down into his foot and trouble walking due to pain. Did not fall or twist his knee or ankle Allergies and Home Medications Allergies Coded Allergies: No Known Drug Allergies (Unverified , 04/26/19) Home Medications Albuterol Sulfate 1 Puff Puff, 2 PUFF INH Q4H PRN for WHEEZING 1 PUFF = 90 MCG Prescribed by: SHERRELL GIRON on 10/03/19 1032 Hydrocodone Bit/Acetaminophen 1 Each Tablet, 1-2 TAB PO Q4H Prescribed by: ADITI SOLIS on 05/02/19 0920 Ibuprofen 800 Mg Tablet, 800 MG PO Q8H PRN for PAIN Prescribed by: MARY LEESTJUJU on 05/04/209 Zolpidem Tartrate 5 Mg Tablet, 5 MG PO DAILY, (Reported) Patient Home Medication List Home Medication List Reviewed: Yes Review of Systems Review of Systems Constitutional: no symptoms reported Musculoskeletal: see HPI; No joint pain; muscle pain Past Iplguto-Noeivp-Ddmpbl Hx Past Med/Social Hx: Reviewed Nursing Past Med/Soc Hx Patient Social History Former Smoker, Quit: Oct 03, 1989 2nd Hand Smoke Exposure: No Recent Foreign Travel: No Contact w/Someone Who Travel: No Recent Hopitalizations: No Immunizations Up To Date PED Vaccines UTD: No Seasonal Allergies Seasonal Allergies: Yes Past Medical History Surgeries: Yes (UMBILICAL HERNIA; lipoma removal) Abdominal Respiratory: No Cardiac: No Neurological: No Reproductive Disorders: No Sexually Transmitted Disease: No HIV/AIDS: No Genitourinary: No Gastrointestinal: No Musculoskeletal: Yes (SHOULDERS) Arthritis Endocrine: No HEENT: Yes (GLASSES) Loss of Vision: Denies Hearing Impairment: Denies Cancer: No Psychosocial: Yes Sleep Difficulties Integumentary: No Blood Disorders: No Adverse Reaction/Blood Tranf: No (N/A) Family Medical History Heart Disease, CAD Over 55 Years Old Physical Exam Vital Signs Vital Signs - First Documented 05/04/20 21:40 Temp 36.1 Pulse 109 Resp 18 B/P (MAP) 162/100 (120) Pulse Ox 97 O2 Delivery Room Air Capillary Refill : Height, Weight, BMI Height: 5'8.00" Weight: 200lbs. 8.0oz. 90.277375tu; 29.00 BMI Method:Stated General Appearance: No Apparent Distress, WD/WN Extremity: Calf Tenderness (lower calf point tenderness. no ecchymosis, no edema. No significant achilles tenderness, swelling or step off. Able to plantar fex, but painful.) Progress/Results/Core Measures Suspected Sepsis SIRS Temperature: Pulse: Respiratory Rate: Blood Pressure / Mean: Results/Orders My Orders Orders - MARY HOPKINS DO Hydrocodone/Apap 5/325 Tablet (Lortab 5 (05/04/20 21:45) Medications Given in ED Current Medications Medications Dose Ordered Sig/Celina Route Start Time Stop Time Status Last Admin Dose Admin Acetaminophen/ Hydrocodone Bitart 1 tab ONCE ONCE PO 05/04/20 21:45 05/04/20 21:46 DC 05/04/20 21:50 1 TAB Vital Signs/I&O 05/04/20 21:40 Temp 36.1 Pulse 109 Resp 18 B/P (MAP) 162/100 (120) Pulse Ox 97 O2 Delivery Room Air Capillary Refill : Progress Note : Progress Note pt placed in ortho boot for comfort. Advised f/u w PCP in a few days. Work restrictions for 1 wk Departure Impression Primary Impression: Traumatic rupture of right plantaris muscle Qualified Codes: S86.111A - Strain of other muscle(s) and tendon(s) of posterior muscle group at lower leg level, right leg, initial encounter Disposition: HOME, SELF-CARE Condition: Stable Departure-Patient Inst. Decision time for Depature: 21:40 Referrals: LUIZA JAIN DO (PCP/Family) Primary Care Physician Patient Instructions: Lower Extremity Muscle Strain (DC) Add. Discharge Instructions: See your PCP in 3-5 days for re-evaluation. Wear the Orthopedic boot when walking until released from its use by your doctor. All discharge instructions reviewed with patient and/or family. Voiced understanding. Scripts Ibuprofen (Ibuprofen) 800 Mg Tablet 800 MG PO Q8H PRN for PAIN, #30 TAB 0 Refills Prov: MARY HOPKINS DO 05/04/20 Work/School Note: Work Release Form Date Seen in the Emergency Department: May 04, 2020 Return to Work: May 06, 2020 Other Restrictions Listed Below: Please allow limited standing and avoid prolonged standing or walking MARY HOPKINS DO May 04, 2020 21:39
[2020-05-04 21:40] VITALS: BP 162/100
[2020-05-04] MEDS ORDERED: HYDROcodone/APAP 5 MG/325 MG (LORTAB) TAB PO ONE (21:45)
== END 2020-05-04 21:52 | disposition home or self-care (01) ==
LOC: EDUNIT# 21:22 → ER FS 21:26
DX: S86.111A Strain of other muscle(s) and tendon(s) of posterior muscle group at lower leg level, right leg, initial encounter (principal); Z87.891 Personal history of nicotine dependence; Z82.49 Family history of ischemic heart disease and other diseases of the circulatory system; X50.9XXA Other and unspecified overexertion or strenuous movements or postures, initial encounter
CPT/HCPCS: 99283; L2114

== ENCOUNTER → 2020-06-10 | Outpatient (CLI) | payer BC ==
[~2020-06-10] MED LIST changes: +IBUP-1780 PO
--- NOTE | 2020-06-10 09:22 | Diagnostic Imaging Report ---
INDICATION: Right ankle pain. Time of exam 9 0 7:00 AM 3 views of the right ankle were obtained. Alignment is normal. Ankle mortise is well-maintained. Talar dome is smooth. No fracture or dislocation is seen. There does appear to be some mild generalized soft tissue swelling about the medial and lateral ankle. A large plantar calcaneal spur is noted. IMPRESSION: Generalized soft tissue swelling about the ankle. No acute bony abnormality is detected. Dictated by: Dictated on workstation # [id number]
== END ==
LOC: RAD FS 08:58
PROVIDERS: ATTEND Nurse Practitioner
DX: M25.471 Effusion, right ankle (principal)
CPT/HCPCS: 73610

== ENCOUNTER 2022-12-24 02:17 | Emergency (ER) | payer BC ==
[~2022-12-24] VITALS: Ht 172 cm; Wt 90.7 kg
[2022-12-24] MEDS ORDERED: LACTATED RINGERS 1,000 ML IV STA (02:32)
[2022-12-24 02:43] LABS: BASOPHILS % (AUTO) 0 % (0-10); EOSINOPHILS # (AUTO) 0.2 10^3/uL (0.0-0.3); EOSINOPHILS % (AUTO) 2 % (0-10); HEMATOCRIT 42 % (40-54); HEMOGLOBIN 14.5 g/dL (13.3-17.7); LYMPHOCYTES # (AUTO) 2.8 10^3/uL (1.0-4.0); LYMPHOCYTES % (AUTO) 32 % (12-44); MEAN CORPUSCULAR HEMOGLOBIN 31 pg (25-34); MEAN CORPUSCULAR HGB CONC 35 g/dL (32-36); MEAN CORPUSCULAR VOLUME 90 fL (80-99); MEAN PLATELET VOLUME 10.7 fL (9.0-12.2); MONOCYTES # (AUTO) 0.6 10^3/uL (0.0-1.0); MONOCYTES % (AUTO) 7 % (0-12); NEUTROPHILS # (AUTO) 5.1 10^3/uL (1.8-7.8); NEUTROPHILS % (AUTO) 58 % (42-75); PLATELET COUNT 223 10^3/uL (130-400); WHITE BLOOD COUNT 8.8 10^3/uL (4.3-11.0)
[2022-12-24] MEDS ORDERED: diphenhydrAMINE 50 MG/ML INJ (BENADRYL) IV ONE (02:45)
[2022-12-24] MEDS ORDERED: MECLIZINE 25 MG (ANTIVERT) TAB PO ONE (02:45)
[2022-12-24] MEDS ORDERED: PROMETHAZINE INJ 25 MG/ML (PHENERGAN) AMP IVP ONE (02:45)
--- NOTE | 2022-12-24 02:46 | ED General ---
General Chief Complaint: Dizziness/Syncope Stated Complaint: DIZZINESS,VOMITING,SHAKING Nursing Triage Note: PATIENT REPORTS WOKE UP 0100 C/O DIZZINESS. STATES HAS BEEN VOMITTING. Source of Information: Patient Exam Limitations: No Limitations History of Present Illness Date Seen by Provider: Dec 24, 2022 Time Seen by Provider: 02:18 Initial Comments 47-year-old male with past medical history of recent diagnosis of diabetes that started metformin yesterday coming in after he woke up around 1 AM with the room spinning with movement, nausea, nonbloody nonbilious vomiting. This is never happened before. When he stands up or moves, it gets significantly worse. When he sits still for a while and improves. Denies any chest pain, shortness of breath, headache, vision changes otherwise, fever, chills, recent illness, hearing changes, tinnitus, or any other concerns. Allergies and Home Medications Allergies Coded Allergies: No Known Drug Allergies (Unverified , 04/26/19) Patient Home Medication List Home Medication List Reviewed: Yes Albuterol Sulfate (Ventolin Hfa) 1 Puff Puff, 2 PUFF INH Q4H PRN for WHEEZING Prescribed by: SHERRELL GIRON on 10/03/19 1032 Hydrocodone Bit/Acetaminophen (Lortab 5 Mg Tablet) 1 Each Tablet, 1-2 TAB PO Q4H Prescribed by: ADITI SOLIS on 05/02/19 09 Ibuprofen (Ibuprofen) 800 Mg Tablet, 800 MG PO Q8H PRN for PAIN Prescribed by: MARY HOPKNIS on 05/04/20 213 Meclizine HCl (Meclizine HCl) 25 Mg Tablet, 25 MG PO Q12H PRN for VERTIGO Prescribed by: JANAE GRACE on 12/24/22 0330 Promethazine HCl (Promethazine Tablet) 25 Mg Tablet, 25 MG PO Q6H PRN for NAUSEA/VOMITING Prescribed by: JANAE GRACE on 12/24/22 0330 Zolpidem Tartrate (Zolpidem Tartrate) 5 Mg Tablet, 5 MG PO DAILY, (Reported) Entered as Reported by: CHEN LEMA on 04/26/19 0900 Review of Systems Review of Systems Constitutional: No fever EENTM: see HPI Respiratory: no symptoms reported Cardiovascular: no symptoms reported Gastrointestinal: no symptoms reported Genitourinary: no symptoms reported Musculoskeletal: no symptoms reported Skin: no symptoms reported Psychiatric/Neurological: See HPI Past [id number] Hx Patient Social History Tobacco Use?: No Immunizations Up To Date PED Vaccines UTD: No Seasonal Allergies Seasonal Allergies: Yes Past Medical History Surgeries: Yes (UMBILICAL HERNIA; lipoma removal) Abdominal Respiratory: No Cardiac: No Neurological: No Reproductive Disorders: No Sexually Transmitted Disease: No HIV/AIDS: No Genitourinary: No Gastrointestinal: No Musculoskeletal: Yes (SHOULDERS) Arthritis Endocrine: No HEENT: Yes (GLASSES) Loss of Vision: Denies Hearing Impairment: Denies Cancer: No Psychosocial: Yes Sleep Difficulties Integumentary: No Blood Disorders: No Adverse Reaction/Blood Tranf: No (N/A) Family Medical History Heart Disease, CAD Over 55 Years Old Physical Exam Vital Signs Vital Signs - First Documented 12/24/22 02:28 Temp 36.4 Pulse 82 Resp 20 B/P (MAP) 155/92 (113) Pulse Ox 95 O2 Delivery Room Air Capillary Refill : Less Than 3 Seconds Height, Weight, BMI Height: 5'8.00" Weight: 200lbs. 8.0oz. 90.736355ug; 30.00 BMI Method:Stated General Appearance: No Apparent Distress, WD/WN Eyes: Bilateral Eye Normal Inspection, Bilateral Eye PERRL, Bilateral Eye EOMI HEENT: PERRL/EOMI, TMs Normal, Normal ENT Inspection, Pharynx Normal Neck: Full Range of Motion, Normal Inspection, Non Tender, Supple Respiratory: Chest Non Tender, Lungs Clear, Normal Breath Sounds, No Accessory Muscle Use, No Respiratory Distress Cardiovascular: Regular Rate, Rhythm, No Edema, Normal Peripheral Pulses Gastrointestinal: Normal Bowel Sounds, Non Tender, Soft; No Distended, No Guarding Back: Normal Inspection, No CVA Tenderness, No Vertebral Tenderness Extremity: Normal Capillary Refill, Normal Inspection, Normal Range of Motion, Non Tender, No Calf Tenderness, No Pedal Edema Neurologic/Psychiatric: Alert, Oriented x3, No Motor/Sensory Deficits, Normal Mood/Affect, packing line worker II-XII Norm as Tested, Other (Normal finger-nose, normal [id number], normal gait, Rosalind Hallpike negative but supine roll test positive) Skin: Normal Color, Warm/Dry Progress/Results/Core Measures Suspected Sepsis SIRS Temperature: Pulse: 82 Respiratory Rate: 20 Laboratory Tests 12/24/22 02:33: White Blood Count 8.8 Blood Pressure 155 /92 Mean: 113 Laboratory Tests 12/24/22 02:33: Creatinine 0.96, Platelet Count 223, Total Bilirubin 0.4 Results/Orders Lab Results Laboratory Tests Test 12/24/22 02:33 Range/Units White Blood Count 8.8 4.3-11.0 10^3/uL Red Blood Count 4.69 4.30-5.52 10^6/uL Hemoglobin 14.5 13.3-17.7 g/dL Hematocrit 42 40-54 % Mean Corpuscular Volume 90 80-99 fL Mean Corpuscular Hemoglobin 31 25-34 pg Mean Corpuscular Hemoglobin Concent 35 32-36 g/dL Red Cell Distribution Width 11.9 10.0-14.5 % Platelet Count 223 130-400 10^3/uL Mean Platelet Volume 10.7 9.0-12.2 fL Immature Granulocyte % (Auto) 1 % Neutrophils (%) (Auto) 58 42-75 % Lymphocytes (%) (Auto) 32 12-44 % Monocytes (%) (Auto) 7 0-12 % Eosinophils (%) (Auto) 2 0-10 % Basophils (%) (Auto) 0 0-10 % Neutrophils # (Auto) 5.1 1.8-7.8 10^3/uL Lymphocytes # (Auto) 2.8 1.0-4.0 10^3/uL Monocytes # (Auto) 0.6 0.0-1.0 10^3/uL Eosinophils # (Auto) 0.2 0.0-0.3 10^3/uL Basophils # (Auto) 0.0 0.0-0.1 10^3/uL Immature Granulocyte # (Auto) 0.1 0.0-0.1 10^3/uL Percent Immature Platelet Fraction 5.6 0.0-7.6 % Sodium Level 137 135-145 MMOL/L Potassium Level 3.3 L 3.6-5.0 MMOL/L Chloride Level 99 98-107 MMOL/L Carbon Dioxide Level 25 21-32 MMOL/L Anion Gap 13 5-14 MMOL/L Blood Urea Nitrogen 13 7-18 MG/DL Creatinine 0.96 0.60-1.30 MG/DL Estimat Glomerular Filtration Rate 97 BUN/Creatinine Ratio 14 Glucose Level 150 H 70-105 MG/DL Calcium Level 8.6 8.5-10.1 MG/DL Corrected Calcium 8.5 8.5-10.1 MG/DL Total Bilirubin 0.4 0.1-1.0 MG/DL Aspartate Amino Transf (AST/SGOT) 32 5-34 U/L Alanine Aminotransferase (ALT/SGPT) 55 0-55 U/L Alkaline Phosphatase 84 40-136 U/L Total Protein 7.6 6.4-8.2 GM/DL Albumin 4.1 3.2-4.5 GM/DL My Orders Orders - JANAE GRACE MD Ct Head Wo (12/24/22 02:32) Cbc With Automated Diff (12/24/22 02:32) Comprehensive Metabolic Panel (12/24/22 02:32) Lactated Ringers (Lr 1000 Ml Iv Solution (12/24/22 02:32) Promethazine Injection (Phenergan Injec (12/24/22 02:45) Diphenhydramine Injection (Benadryl Inje (12/24/22 02:45) Meclizine Tablet (Antivert Tablet) (12/24/22 02:45) Medications Given in ED Current Medications Medications Dose Ordered Sig/Celina Route Start Time Stop Time Status Last Admin Dose Admin Diphenhydramine HCl 12.5 mg ONCE ONCE IV 12/24/22 02:45 12/24/22 02:46 DC 12/24/22 02:44 12.5 MG Meclizine HCl 25 mg ONCE ONCE PO 12/24/22 02:45 12/24/22 02:46 DC 12/24/22 03:16 25 MG Promethazine HCl 25 mg ONCE ONCE IVP 12/24/22 02:45 12/24/22 02:46 DC 12/24/22 02:42 25 MG Vital Signs/I&O 12/24/22 02:28 Temp 36.4 Pulse 82 Resp 20 B/P (MAP) 155/92 (113) Pulse Ox 95 O2 Delivery Room Air Capillary Refill : Less Than 3 Seconds Blood Pressure Mean: 113 Progress Note : Progress Note 47-year-old male with above history coming in due to vertigo. ABCs were intact and vitals were stable on presentation. Physical exam with a nonfocal neuro exam. His symptoms were better with rest and inducible with head movements which seem more consistent with peripheral vertigo. Very symptomatic with Rosalind-Hallpike, unable to really fully complete it. CT head on my interpretation with no obvious hemorrhage or space-occupying lesion. Patient was given IV Phenergan, fluids, Benadryl, and meclizine p.o. On reassessment was feeling slightly better. The patient is able to ambulate by himself. Given age and lack of risk factors, and clinical history with physical exam, I think it is highly unlikely this is a central lesion. I believe he is otherwise stable for discharge with outpatient follow-up. He was sent home with strict return precautions. Diagnostic Imaging Diagonstic Imaging: CT (head) Departure Impression Primary Impression: Vertigo Disposition: HOME, SELF-CARE Condition: Improved Departure-Patient Inst. Decision time for Depature: 04:38 Referrals: DANK JEFFERY MD [facility] (PCP/Family) Primary Care Physician Patient Instructions: Vertigo ED Add. Discharge Instructions: This dizziness you are experiencing is often a problem from the inner ear called BPPV. Drink plenty of fluids, and medicines were sent to your pharmacy to help with this. There are also nausea medicine sent. Follow-up with Dr. Jeffery in [place] if symptoms or not improving after the next week or so. Sometimes it can take a couple weeks to improve. If you have any weakness or you cannot move 1 side of your body, numbness we cannot feel 1 side of your body, or vision changes where you completely lose your vision for an extended period of time, I would want you to be evaluated in the ER again. Scripts Promethazine HCl (Promethazine Tablet) 25 Mg Tablet 25 MG PO Q6H PRN for NAUSEA/VOMITING for 5 Days, #20 TAB Prov: JANAE GRACE MD 12/24/22 Meclizine HCl (Meclizine HCl) 25 Mg Tablet 25 MG PO Q12H PRN for VERTIGO for 14 Days, #28 TAB Prov: JANAE GRACE MD 12/24/22 Work/School Note: Family Work Note, Patient Received Medical Care In the Emergency Department On: Dec 24, 2022 Patient Will Be Able to Return to Work/School On: Dec 25, 2022 Work Release Form Date Seen in the Emergency Department: Dec 24, 2022 Return to Work: Dec 25, 2022 Restrictions: No Restrictions JANAE GRACE MD Dec 24, 2022 02:46
[2022-12-24 03:07] LABS: BILIRUBIN,TOTAL 0.4 MG/DL (0.1-1.0); CALCIUM 8.6 MG/DL (8.5-10.1); CREATININE SERUM 0.96 MG/DL (0.60-1.30); POTASSIUM 3.3 MMOL/L (3.6-5.0)
[2022-12-24 03:08] LABS: ALBUMIN 4.1 GM/DL (3.2-4.5); TOTAL PROTEIN 7.6 GM/DL (6.4-8.2)
[2022-12-24] MEDS ORDERED: PROM25TA14 PO (03:30)
[2022-12-24] MEDS ORDERED: MECL-149 PO (03:30)
[2022-12-24 04:50] VITALS: BP 142/78
--- NOTE | 2022-12-24 06:09 | Diagnostic Imaging Report ---
PROCEDURE: CT head without contrast. TECHNIQUE: Multiple contiguous axial images were obtained through the brain without the use of intravenous contrast. Auto Exposure Controls were utilized during the CT exam to meet ALARA standards for radiation dose reduction. INDICATION: Vertigo. FINDINGS: Paranasal sinuses are clear. The ventricles are normal in size, shape and position. There are no masses or hemorrhages. There are no extra-axial fluid collections. IMPRESSION: Negative CT head. I agree with preliminary interpretation. Dictated by: Dictated on workstation # [id number]
== END 2022-12-24 04:54 | disposition home or self-care (01) ==
LOC: EDUNIT# 02:17 → ER FS 02:18
DX: R42 Dizziness and giddiness (principal); E11.9 Type 2 diabetes mellitus without complications; Z28.310 Unvaccinated for COVID-19; Z79.84 Long term (current) use of oral hypoglycemic drugs
CPT/HCPCS: 36415; 70450; 80053; 85025